=== PATIENT | female | born 1945 | race Caucasian/White ===

== ENCOUNTER 2017-02-22 16:33 | Inpatient (IN) | payer MEDICARE ==
[~2017-02-22] VITALS: Ht 160 cm; Wt 61.0 kg
[~2017-02-22 16:33] MED LIST: ASPI325T4 PO; CLON0.2T PO; ESCI10TA10 PO; HYDR-3240 PO; LISI-170 PO; LOPE2TAB28 PO; LORA0.5T PO; METO-99 PO; ONDA4TAB7 PO; OXYC-302 PO; [UNRECOGNIZED DRUG - REMARK]
[2017-02-22] MEDS ORDERED: ONDANSETRON 2MG/ML, 2ML IVPush ONE (17:00)
[2017-02-22] MEDS ORDERED: SODIUM CHLORIDE FLUSH 10ML SYR IVF ONE (17:00)
[2017-02-22] MEDS ORDERED: ONDANSETRON 2MG/ML, 2ML ONE (17:15)
[2017-02-22] MEDS ORDERED: SODIUM CHLORIDE 0.9% 1,000ML IVBOLUS ONE (17:30)
[2017-02-22 17:37] LABS: HEMOGLOBIN 15.7 g/dL (11.7-16.4)
[2017-02-22 17:50] LABS: BLOOD UREA NITROGEN 59 mg/dL (7-18)
[2017-02-22 17:57] LABS: IS PT STATUS REG ER OR PRE ER? YES
[2017-02-22] MEDS ORDERED: DEXTROSE 50%, 50ML SYRINGE ONE (18:56)
[2017-02-22] MEDS ORDERED: CALCIUM CHLORIDE 10%, 10ML SYR ONE (18:57)
[2017-02-22] MEDS ORDERED: INSULIN SINGLE DOSE, ER SQ-INSULIN ONE (18:58)
[2017-02-22] MEDS ORDERED: ALBUTEROL 0.5%, 20ML NPPB ONE (19:00)
[2017-02-22] MEDS ORDERED: CALCIUM CHLORIDE 10%, 10ML SYR IVPush ONE (19:00)
[2017-02-22] MEDS ORDERED: DEXTROSE 50%, 50ML SYRINGE IVPush ONE (19:00)
[2017-02-22] MEDS ORDERED: INSULIN REGULAR 100 UNITS/ML, 3ML VIAL IVPush ONE (19:00)
[2017-02-22 19:12] LABS: ICTOTEST POSITIVE
[2017-02-22] MEDS ORDERED: METRONIDAZOLE PMX 500MG/100ML 100 ML IV ONE (19:30)
[2017-02-22] MEDS ORDERED: CEFTRIAXONE PMX 1GM/50ML 50 ML IV ONE (19:30)
[2017-02-22] MEDS ORDERED: METRONIDAZOLE PMX 500MG/100ML 100 ML ONE (19:50)
[2017-02-22] MEDS ORDERED: CEFTRIAXONE PMX 1GM/50ML 50 ML ONE (19:51)
[2017-02-22] MEDS: SODIUM BICARBONATE 8.4% 150 MEQ in DEXTROSE 5% 1,000 ML IV SCH (19:59)
[2017-02-22] MEDS ORDERED: PROC10TA PO (20:10)
[2017-02-22] MEDS ORDERED: BISACODYL 10 MG SUPP PR PRN (21:00)
[2017-02-22] MEDS ORDERED: ONDANSETRON ODT 4 MG PO PRN (21:00)
[2017-02-22] MEDS ORDERED: POLYETHYLENE GLYCOL 17 GM PACKET PO PRN (21:00)
[2017-02-22] MEDS ORDERED: LABETALOL 5MG/ML, 20ML IV PRN (21:00)
[2017-02-22] MEDS ORDERED: ACETAMINOPHEN 325 MG TABLET PO PRN (21:00)
[2017-02-22] MEDS ORDERED: DOCUSATE 100 MG CAPSULE PO PRN (21:00)
[2017-02-22] MEDS ORDERED: TRAZODONE 50MG TABLET PO PRN (21:00)
[2017-02-22 22:53] VITALS: BP 127/70
[2017-02-22 23:27] LABS: BLOOD UREA NITROGEN 59 mg/dL (7-18)
[2017-02-23 02:00] VITALS: BP 132/82
[2017-02-23] MEDS: HEPARIN 5,000 UNITS/ML, 1ML SQ SCH ×3 (02:28→17:51)
[2017-02-23] MEDS: METRONIDAZOLE PMX 500MG/100ML 100 ML IV SCH ×3 (04:32→20:07)
[2017-02-23] MEDS: SODIUM BICARBONATE 8.4% 150 MEQ in DEXTROSE 5% 1,000 ML IV SCH ×3 (04:44→20:06)
[2017-02-23 06:40] VITALS: BP 103/64
[2017-02-23 06:42] LABS: HEMOGLOBIN 11.9 g/dL (11.7-16.4)
[2017-02-23 06:53] LABS: BLOOD UREA NITROGEN 56 mg/dL (7-18)
[2017-02-23 07:04] LABS: ASPARTATE AMINO TRANSFERASE 14 U/L (15-37)
[2017-02-23] MEDS: CEFTRIAXONE PMX 2GM/50ML 50 ML IV SCH (08:29)
[2017-02-23] MEDS: CITALOPRAM 20 MG TABLET PO SCH (08:29)
[2017-02-23 14:00] VITALS: BP 111/65
[2017-02-23 22:32] VITALS: BP 119/82
[2017-02-24 02:50] VITALS: BP 107/64
[2017-02-24] MEDS: SODIUM BICARBONATE 8.4% 150 MEQ in DEXTROSE 5% 1,000 ML IV SCH ×2 (03:24→11:40)
[2017-02-24] MEDS: HEPARIN 5,000 UNITS/ML, 1ML SQ SCH ×3 (03:24→19:01)
[2017-02-24] MEDS: METRONIDAZOLE PMX 500MG/100ML 100 ML IV SCH ×3 (03:24→19:48)
[2017-02-24 04:42] LABS: HEMOGLOBIN 10.2 g/dL (11.7-16.4)
[2017-02-24 04:51] LABS: BLOOD UREA NITROGEN 43 mg/dL (7-18)
[2017-02-24 04:55] LABS: ASPARTATE AMINO TRANSFERASE 15 U/L (15-37); TOTAL IRON BINDING CAPACITY 336 mcg/dL (250-450)
[2017-02-24 07:21] VITALS: BP 102/61
[2017-02-24] MEDS: CEFTRIAXONE PMX 2GM/50ML 50 ML IV SCH (07:56)
[2017-02-24] MEDS: CITALOPRAM 20 MG TABLET PO SCH (07:56)
[2017-02-24] MEDS: SODIUM CHLORIDE 0.9% 1,000 ML IV SCH ×2 (12:00→23:13)
[2017-02-24 13:44] VITALS: BP 100/64
[2017-02-24] MEDS ORDERED: LORazepam 2 MG/ML, 1ML IVPush PRN (16:00)
[2017-02-24] MEDS: POTASSIUM CHLORIDE 20 MEQ PACKET PO SCH (16:49)
[2017-02-24 20:45] VITALS: BP 112/60
[2017-02-25 01:08] VITALS: BP 109/73
[2017-02-25] MEDS: METRONIDAZOLE PMX 500MG/100ML 100 ML IV SCH ×2 (03:53→12:00)
[2017-02-25] MEDS: HEPARIN 5,000 UNITS/ML, 1ML SQ SCH ×2 (03:54→11:30)
[2017-02-25] MEDS: SODIUM CHLORIDE 0.9% 1,000 ML IV SCH (03:55)
[2017-02-25 04:19] LABS: HEMOGLOBIN 9.9 g/dL (11.7-16.4)
[2017-02-25 04:31] LABS: ASPARTATE AMINO TRANSFERASE 20 U/L (15-37); BLOOD UREA NITROGEN 24 mg/dL (7-18)
[2017-02-25 07:18] VITALS: BP 116/73
[2017-02-25] MEDS: CITALOPRAM 20 MG TABLET PO SCH (08:22)
[2017-02-25] MEDS: POTASSIUM CHLORIDE 20 MEQ PACKET PO SCH (08:22)
[2017-02-25] MEDS: CEFTRIAXONE PMX 2GM/50ML 50 ML IV SCH (08:22)
[2017-02-25] MEDS ORDERED: METR500T PO (10:21)
[2017-02-25] MEDS ORDERED: CEFD300C2 PO (10:21)
[2017-02-25] MEDS ORDERED: POTASSIUM CHLORIDE 20 MEQ TAB.ER.PRT PO ONE (10:30)
[2017-02-25] MEDS ORDERED: POTA20PA8 PO (10:38)
== END 2017-02-25 13:23 | disposition home or self-care (01) | DRG 872 ==
LOC: ED 18:55 → EDIP 20:37 → 5SO 22:25 → 3NW 02-23 18:15
PROVIDERS: ADMIT Internal Medicine; ATTEND Internal Medicine
PROC: 0T9B70Z Drainage of Bladder with Drainage Device, Via Natural or Artificial Opening (ICD-10-PCS; principal; 2017-02-22)
DX: A41.9 Sepsis, unspecified organism (principal); N17.9 Acute kidney failure, unspecified; E87.1 Hypo-osmolality and hyponatremia; E87.2 Acidosis; E46 Unspecified protein-calorie malnutrition; C78.7 Secondary malignant neoplasm of liver and intrahepatic bile duct; C20 Malignant neoplasm of rectum; E87.5 Hyperkalemia; E83.41 Hypermagnesemia; N18.3 Chronic kidney disease, stage 3 (moderate); F32.9 Major depressive disorder, single episode, unspecified; F41.9 Anxiety disorder, unspecified; A08.4 Viral intestinal infection, unspecified; E86.0 Dehydration; I12.9 Hypertensive chronic kidney disease with stage 1 through stage 4 chronic kidney disease, or unspecified chronic kidney disease; E87.6 Hypokalemia; Z68.23 Body mass index [BMI] 23.0-23.9, adult; Z85.048 Personal history of other malignant neoplasm of rectum, rectosigmoid junction, and anus; Z90.49 Acquired absence of other specified parts of digestive tract; Z80.0 Family history of malignant neoplasm of digestive organs; Z92.21 Personal history of antineoplastic chemotherapy
CPT/HCPCS: 36415; 71010; 76700; 80048; 80053; 81001; 82040; 82728; 83540; 83550; 83605; 83735; 84100; 84145; 84439; 84443; 84484; 84550; 85025; 87040; 87046; 87252; 87324; 87899; 93005; 96361; 96365; 96366; 96368; 96375; J0696; J1644; J2405; J7070; J2060; J7030

== ENCOUNTER → 2017-04-20 | Outpatient (CLI) | payer MEDICARE ==
[~2017-04-20] MED LIST changes: +CEFD300C37 PO; +METR500T PO; +OMNIPAQUE 350 MG/ML, 75ML BOTTLE ONE; +POTA20PA8 PO; +PROC10TA PO
== END | disposition home or self-care (01) ==
LOC: CFH 09:58
PROVIDERS: ATTEND Internal Medicine Hematology & Oncology
DX: C18.7 Malignant neoplasm of sigmoid colon (principal); M51.34 Other intervertebral disc degeneration, thoracic region; J84.10 Pulmonary fibrosis, unspecified; N28.1 Cyst of kidney, acquired; K43.5 Parastomal hernia without obstruction or gangrene
CPT/HCPCS: 71260; 74177; J1642; Q9967

== ENCOUNTER → 2017-05-10 | Outpatient (CLI) | payer MEDICARE ==
[~2017-05-10] MED LIST changes: -OMNIPAQUE 350 MG/ML, 75ML BOTTLE ONE
== END | disposition home or self-care (01) ==
LOC: RAD 07:42
PROVIDERS: ATTEND Colon & Rectal Surgery
DX: C18.9 Malignant neoplasm of colon, unspecified (principal); C79.51 Secondary malignant neoplasm of bone; K63.89 Other specified diseases of intestine; M51.36 Other intervertebral disc degeneration, lumbar region
CPT/HCPCS: 74270

== ENCOUNTER 2017-05-14 16:54 | Inpatient (IN) | payer MEDICARE ==
[~2017-05-14] VITALS: Ht 157.5 cm; Wt 74.2 kg
[2017-05-14] MEDS ORDERED: SODIUM CHLORIDE 0.9% 1,000 ML IV ONE (17:44)
[2017-05-14] MEDS ORDERED: SODIUM CHLORIDE FLUSH 10ML SYR IVF ONE (18:00)
[2017-05-14] MEDS ORDERED: ONDANSETRON 2MG/ML, 2ML IVPush ONE (18:00)
[2017-05-14 19:06] LABS: PATH.CAST-FLAG NOT PRESENT; SPERM-FLAG NOT PRESENT; SRC-FLAG NOT PRESENT; XTAL-FLAG NOT PRESENT; YLC-FLAG NOT PRESENT
[2017-05-14 19:15] LABS: BLOOD UREA NITROGEN 35 mg/dL (7-18)
[2017-05-14 19:18] LABS: ASPARTATE AMINO TRANSFERASE 26 U/L (15-37)
[2017-05-14] MEDS ORDERED: GABA300C10 PO (19:29)
[2017-05-14] MEDS: HEPARIN 5,000 UNITS/ML, 1ML SQ SCH (21:00)
[2017-05-14] MEDS ORDERED: ONDANSETRON 2MG/ML, 2ML IVPush PRN (21:00)
[2017-05-14 21:52] VITALS: BP 121/73
[2017-05-14] MEDS: SODIUM CHLORIDE 0.9% 1,000 ML IV SCH (22:09)
[2017-05-15 01:31] VITALS: BP 120/76
[2017-05-15] MEDS: morphine SULFATE 10 MG/ML, 1ML IVPush PRN ×2 (03:50→21:23)
[2017-05-15] MEDS: HEPARIN 5,000 UNITS/ML, 1ML SQ SCH ×3 (03:51→21:23)
[2017-05-15] MEDS: ONDANSETRON 2MG/ML, 2ML IVPush PRN (04:13)
[2017-05-15 04:53] LABS: ASPARTATE AMINO TRANSFERASE 16 U/L (15-37); BLOOD UREA NITROGEN 32 mg/dL (7-18)
[2017-05-15 07:33] VITALS: BP 112/63
[2017-05-15] MEDS: SODIUM CHLORIDE 0.9% 1,000 ML IV SCH ×2 (09:06→17:42)
[2017-05-15 17:36] VITALS: BP 109/69
[2017-05-15 19:44] VITALS: BP 117/69
[2017-05-15] MEDS ORDERED: SODIUM CHLORIDE 0.9% 1,000 ML IV SCH (20:53)
[2017-05-16] MEDS ORDERED: LORazepam 2 MG/ML, 1ML ONE (03:12)
[2017-05-16 03:15] VITALS: BP 113/74
[2017-05-16] MEDS ORDERED: LORazepam 2 MG/ML, 1ML IVPush ONE (03:15)
[2017-05-16 04:20] LABS: BLOOD UREA NITROGEN 28 mg/dL (7-18)
[2017-05-16] MEDS: D5%-0.9% NACL 1,000 ML IV SCH ×3 (04:30→18:37)
[2017-05-16] MEDS: HEPARIN 5,000 UNITS/ML, 1ML SQ SCH ×3 (05:00→20:51)
[2017-05-16 06:51] VITALS: BP 108/65
[2017-05-16] MEDS: morphine SULFATE 10 MG/ML, 1ML IVPush PRN ×3 (12:09→20:51)
[2017-05-16 14:50] VITALS: BP 109/63
[2017-05-16 19:18] VITALS: BP 127/64
[2017-05-16] MEDS: GABAPENTIN 300 MG CAPSULE PO SCH (20:51)
[2017-05-17] MEDS: D5%-0.9% NACL 1,000 ML IV SCH ×4 (00:30→23:42)
[2017-05-17] MEDS: morphine SULFATE 10 MG/ML, 1ML IVPush PRN ×6 (01:30→23:43)
[2017-05-17] MEDS: HEPARIN 5,000 UNITS/ML, 1ML SQ SCH ×3 (05:00→23:11)
[2017-05-17 06:15] LABS: BLOOD UREA NITROGEN 17 mg/dL (7-18)
[2017-05-17] MEDS: GABAPENTIN 300 MG CAPSULE PO SCH ×2 (08:31→23:13)
[2017-05-17] MEDS: LEXAPRO 10 MG PO SCH (08:36)
[2017-05-17 08:48] VITALS: BP 113/69
[2017-05-17] MEDS ORDERED: POTASSIUM PHOSPHATE 44 MEQ in SODIUM CHLORIDE 0.9% 500 ML IV ONE (09:00)
[2017-05-17] MEDS ORDERED: CITALOPRAM 10 MG TABLET PO SCH (09:00)
[2017-05-17] MEDS ORDERED: CEFOTETAN 2 GM ONE (10:39)
[2017-05-17] MEDS ORDERED: GLYCOPYRROLATE 0.2MG/1ML ONE (10:39)
[2017-05-17] MEDS ORDERED: PROPOFOL 10 MG/ML, 20ML ONE (10:39)
[2017-05-17] MEDS ORDERED: ONDANSETRON 2MG/ML, 2ML ONE (10:39)
[2017-05-17] MEDS ORDERED: NEOSTIGMINE 1 MG/ML, 10ML ONE (10:39)
[2017-05-17] MEDS ORDERED: DEXAMETHASONE 4 MG/ML, 1ML ONE (10:39)
[2017-05-17] MEDS ORDERED: ROCURONIUM 10 MG/ML ONE (10:39)
[2017-05-17 14:30] VITALS: BP 123/71
[2017-05-17] MEDS ORDERED: FENTANYL PF 250 MCG/5ML ONE (16:39)
[2017-05-17] MEDS ORDERED: PROMETHAZINE 25 MG/ML, 1ML IV PRN (18:00)
[2017-05-17] MEDS ORDERED: ALBUTEROL SULFATE 2.5 MG/3 ML NPPB PRN (18:00)
[2017-05-17] MEDS ORDERED: METOPROLOL 1 MG/ML, 5ML IV PRN (18:00)
[2017-05-17] MEDS ORDERED: ACETAMINOPHEN 325 MG TABLET PO PRN (18:00)
[2017-05-17] MEDS ORDERED: OXYcodone 5 MG/5 ML ORAL.SOL UDC PO PRN (18:00)
[2017-05-17] MEDS ORDERED: hydrALAzine 20 MG/ML, 1ML IV PRN (18:00)
[2017-05-17] MEDS ORDERED: HYDROmorphone 1 MG/ML, 1ML IV PRN (18:00)
[2017-05-17] MEDS ORDERED: PROMETHAZINE 25 MG/ML, 1ML ONE (18:30)
[2017-05-17] MEDS ORDERED: FENTANYL PF 100 MCG/2ML ONE (18:30)
[2017-05-17] MEDS: FENTANYL PF 100 MCG/2ML IV PRN ×2 (18:35→19:00)
[2017-05-17 19:39] VITALS: BP 117/66
[2017-05-17] MEDS: ONDANSETRON 2MG/ML, 2ML IVPush PRN (22:23)
[2017-05-17] MEDS ORDERED: DIPHENHYDRAMINE 50 MG/ML, 1ML IV PRN (22:30)
[2017-05-17] MEDS ORDERED: LORazepam 1MG TABLET PO PRN (22:30)
[2017-05-17] MEDS ORDERED: LORazepam 2 MG/ML, 1ML IV PRN (22:30)
[2017-05-17] MEDS ORDERED: morphine SULFATE 10 MG/ML, 1ML IV PRN (22:30)
[2017-05-17] MEDS ORDERED: ONDANSETRON 2MG/ML, 2ML IV PRN (22:30)
[2017-05-17] MEDS ORDERED: DIPHENHYDRAMINE 25 MG CAPSULE PO PRN (22:30)
[2017-05-17] MEDS: KETOROLAC 30 MG/1 ML IV SCH (23:43)
[2017-05-17] MEDS: LACTATED RINGERS 1,000 ML IV SCH (23:43)
[2017-05-18 00:17] VITALS: BP 135/73
[2017-05-18] MEDS: morphine SULFATE 10 MG/ML, 1ML IVPush PRN ×4 (03:01→20:51)
[2017-05-18 03:50] VITALS: BP 116/70
[2017-05-18] MEDS: HEPARIN 5,000 UNITS/ML, 1ML SQ SCH (05:00)
[2017-05-18 06:19] LABS: BLOOD UREA NITROGEN 15 mg/dL (7-18)
[2017-05-18] MEDS: D5%-0.9% NACL 1,000 ML IV SCH (06:37)
[2017-05-18] MEDS: KETOROLAC 30 MG/1 ML IV SCH ×3 (06:37→18:20)
[2017-05-18] MEDS: CEFOTETAN PMX 2GM/50ML 50 ML IVPB SCH ×2 (06:37→18:19)
[2017-05-18] MEDS: LACTATED RINGERS 1,000 ML IV SCH ×2 (06:37→14:30)
[2017-05-18 08:13] VITALS: BP 105/58
[2017-05-18] MEDS: ENOXAPARIN 40 MG/0.4 ML SQ SCH (08:48)
[2017-05-18] MEDS: GABAPENTIN 300 MG CAPSULE PO SCH ×2 (08:48→20:51)
[2017-05-18] MEDS: LEXAPRO 10 MG PO SCH (08:50)
[2017-05-18] MEDS ORDERED: NS + 20MEQ KCL 1,000 ML IV SCH (09:30)
[2017-05-18 11:29] VITALS: BP 102/63
[2017-05-18 15:33] VITALS: BP 116/72
[2017-05-18] MEDS: D5%-0.45% NACL 1,000 ML IV SCH (16:44)
[2017-05-18 20:48] VITALS: BP 104/64
[2017-05-19] MEDS: KETOROLAC 30 MG/1 ML IV SCH ×2 (00:32→06:48)
[2017-05-19] MEDS: D5%-0.45% NACL 1,000 ML IV SCH ×4 (00:32→23:40)
[2017-05-19] MEDS: morphine SULFATE 10 MG/ML, 1ML IVPush PRN ×3 (00:33→19:12)
[2017-05-19 03:13] VITALS: BP 118/68
[2017-05-19 06:44] LABS: BLOOD UREA NITROGEN 19 mg/dL (7-18)
[2017-05-19] MEDS: LEXAPRO 10 MG PO SCH (08:01)
[2017-05-19] MEDS: ENOXAPARIN 40 MG/0.4 ML SQ SCH (08:01)
[2017-05-19] MEDS: GABAPENTIN 300 MG CAPSULE PO SCH ×2 (08:01→20:23)
[2017-05-19 08:06] VITALS: BP 117/72
[2017-05-19 13:24] VITALS: BP 124/78
[2017-05-19 15:31] LABS: BLOOD UREA NITROGEN 17 mg/dL (7-18)
[2017-05-19] MEDS ORDERED: POTASSIUM CHLORIDE 40 MEQ in SODIUM CHLORIDE 0.9% 500 ML IV ONE (16:00)
[2017-05-19 19:51] VITALS: BP 133/74
[2017-05-19] MEDS: ONDANSETRON 2MG/ML, 2ML IVPush PRN (20:08)
[2017-05-19] MEDS: OXYcodone/APAP 5/325MG TABLET PO PRN (20:23)
[2017-05-20] MEDS: OXYcodone/APAP 5/325MG TABLET PO PRN ×5 (00:33→18:21)
[2017-05-20 01:03] VITALS: BP 115/68
[2017-05-20] MEDS: D5%-0.45% NACL 1,000 ML IV SCH ×2 (04:42→10:13)
[2017-05-20] MEDS: ONDANSETRON 2MG/ML, 2ML IVPush PRN ×2 (04:42→17:14)
[2017-05-20 05:08] LABS: BLOOD UREA NITROGEN 14 mg/dL (7-18)
[2017-05-20] MEDS ORDERED: ENOXAPARIN 30 MG/0.3 ML SQ SCH (08:00)
[2017-05-20 08:15] VITALS: BP 136/79
[2017-05-20] MEDS ORDERED: POTASSIUM PHOSPHATE 44 MEQ in SODIUM CHLORIDE 0.9% 500 ML IV ONE (09:00)
[2017-05-20] MEDS ORDERED: MAGNESIUM SULFATE PMX 2GM/50ML 50 ML IV ONE (09:00)
[2017-05-20] MEDS: GABAPENTIN 300 MG CAPSULE PO SCH ×2 (09:48→20:31)
[2017-05-20] MEDS: LEXAPRO 10 MG PO SCH (09:49)
[2017-05-20 12:54] VITALS: BP 110/69
[2017-05-20 20:27] VITALS: BP 119/74
[2017-05-21] MEDS: ONDANSETRON 2MG/ML, 2ML IVPush PRN ×2 (00:45→05:28)
[2017-05-21] MEDS: OXYcodone/APAP 5/325MG TABLET PO PRN ×4 (02:15→23:17)
[2017-05-21 03:56] VITALS: BP 127/75
[2017-05-21] MEDS: D5%-0.45% NACL 1,000 ML IV SCH (05:23)
[2017-05-21 05:26] LABS: BLOOD UREA NITROGEN 13 mg/dL (7-18)
[2017-05-21] MEDS: LEXAPRO 10 MG PO SCH (09:00)
[2017-05-21] MEDS: ENOXAPARIN 40 MG/0.4 ML SQ SCH (09:05)
[2017-05-21] MEDS: GABAPENTIN 300 MG CAPSULE PO SCH ×2 (09:05→20:35)
[2017-05-21 09:07] VITALS: BP 137/77
[2017-05-21] MEDS ORDERED: D5%-0.9% NACL+KCL 20MEQ 1,000 ML IV SCH (10:00)
[2017-05-21 14:21] VITALS: BP 137/83
[2017-05-21] MEDS: FUROSEMIDE 20 MG/2 ML IV SCH ×2 (14:27→17:00)
[2017-05-21 19:58] VITALS: BP 126/74
[2017-05-22] MEDS: OXYcodone/APAP 5/325MG TABLET PO PRN ×3 (03:23→20:50)
[2017-05-22 03:33] VITALS: BP 118/72
[2017-05-22 05:57] LABS: BLOOD UREA NITROGEN 11 mg/dL (7-18)
[2017-05-22] MEDS ORDERED: FUROSEMIDE 20 MG/2 ML IV ONE (06:00)
[2017-05-22 06:46] VITALS: BP 113/67
[2017-05-22] MEDS: GABAPENTIN 300 MG CAPSULE PO SCH ×2 (09:25→20:48)
[2017-05-22] MEDS: ENOXAPARIN 40 MG/0.4 ML SQ SCH (09:26)
[2017-05-22] MEDS ORDERED: D5%-0.9% NACL+KCL 20MEQ 1,000 ML IV SCH (10:00)
[2017-05-22] MEDS: CITALOPRAM 20 MG TABLET PO SCH (11:22)
[2017-05-22 13:43] VITALS: BP 118/64
[2017-05-22 20:00] VITALS: BP 129/62
[2017-05-23] MEDS: OXYcodone/APAP 5/325MG TABLET PO PRN ×2 (01:02→05:18)
[2017-05-23 03:22] VITALS: BP 123/69
[2017-05-23 05:51] LABS: BLOOD UREA NITROGEN 14 mg/dL (7-18)
[2017-05-23 07:06] VITALS: BP 138/76
[2017-05-23] MEDS: ENOXAPARIN 40 MG/0.4 ML SQ SCH (09:36)
[2017-05-23] MEDS: CITALOPRAM 20 MG TABLET PO SCH (09:36)
[2017-05-23] MEDS: GABAPENTIN 300 MG CAPSULE PO SCH (09:36)
[2017-05-23] MEDS ORDERED: OXYC1TAB7 PO (10:42)
== END 2017-05-23 11:58 | disposition home or self-care (01) | DRG 330 ==
LOC: ED 19:37 → EDIP 20:23 → 3NW 21:32 → 4NOR 05-17 19:35 → DCLOUNGE 05-23 11:30
PROVIDERS: ADMIT Internal Medicine; ATTEND Family Medicine
PROC: 0WQF0ZZ Repair Abdominal Wall, Open Approach (ICD-10-PCS; 2017-05-17)
PROC: 0JPT0XZ Removal of Tunneled Vascular Access Device from Trunk Subcutaneous Tissue and Fascia, Open Approach (ICD-10-PCS; 2017-05-17)
PROC: 0DBB0ZZ Excision of Ileum, Open Approach (ICD-10-PCS; principal; 2017-05-17 16:00)
DX: K43.3 Parastomal hernia with obstruction, without gangrene (principal); E87.1 Hypo-osmolality and hyponatremia; E87.2 Acidosis; N17.9 Acute kidney failure, unspecified; D64.9 Anemia, unspecified; E83.39 Other disorders of phosphorus metabolism; E83.42 Hypomagnesemia; E86.1 Hypovolemia; E87.6 Hypokalemia; F32.9 Major depressive disorder, single episode, unspecified; F41.9 Anxiety disorder, unspecified; K42.9 Umbilical hernia without obstruction or gangrene; N18.3 Chronic kidney disease, stage 3 (moderate); Z43.2 Encounter for attention to ileostomy; Z80.0 Family history of malignant neoplasm of digestive organs; Z85.048 Personal history of other malignant neoplasm of rectum, rectosigmoid junction, and anus
CPT/HCPCS: 36415; 74176; 80048; 80053; 81001; 82040; 83690; 83735; 84100; 85025; 85610; 85730; 88304; 96360; 96361; J1100; J1644; J1650; J1885; J2405; J2550; J2704; J2710; J3010; J3480; J3490; J7042; J1940; J2060; J2270; J3475; J7030; J7040; S0074

== ENCOUNTER → 2017-11-02 | Outpatient (CLI) | payer MEDICARE ==
[~2017-11-02] MED LIST changes: +ASPI325T17 PO; -ASPI325T4 PO; +GABA300C10 PO; +OXYC1TAB7 PO; +POTA20PA25 PO; -POTA20PA8 PO
== END | disposition home or self-care (01) ==
LOC: CFH 14:03
PROVIDERS: ATTEND Internal Medicine
DX: Z12.31 Encounter for screening mammogram for malignant neoplasm of breast (principal); M85.80 Other specified disorders of bone density and structure, unspecified site
CPT/HCPCS: 77063; 77080; G0202

== ENCOUNTER 2018-05-14 19:03 | Emergency (ER) | payer MEDICARE ==
[~2018-05-14] VITALS: Ht 157.5 cm; Wt 68.0 kg
[2018-05-14] MEDS ORDERED: LIDOCAINE-MPF 2% ,5ML ONE ×2 (19:22→19:58)
[2018-05-14] MEDS ORDERED: LIDOCAINE 2%, 10ML INFIL ONE (20:00)
[2018-05-14] MEDS ORDERED: BACITRACIN ZINC OINT 500U/GM, 0.9 GM ONE (20:43)
[2018-05-14 21:22] VITALS: BP 184/99
== END 2018-05-14 21:34 | disposition home or self-care (01) ==
LOC: ED 21:05
DX: S61.212A Laceration without foreign body of right middle finger without damage to nail, initial encounter (principal); W45.8XXA Other foreign body or object entering through skin, initial encounter; Y93.89 Activity, other specified; Y99.8 Other external cause status; Y92.89 Other specified places as the place of occurrence of the external cause
CPT/HCPCS: 12041; 99284

== ENCOUNTER → 2018-07-13 | Outpatient (CLI) | payer MEDICARE ==
[~2018-07-13] MED LIST changes: +OMNIPAQUE 350 MG/ML, 100ML BOTTLE ONE; -PROC10TA PO; +PROC10TA2 PO
== END | disposition home or self-care (01) ==
LOC: CFH 11:16
PROVIDERS: ATTEND Colon & Rectal Surgery
DX: K43.2 Incisional hernia without obstruction or gangrene (principal); N28.1 Cyst of kidney, acquired; C18.9 Malignant neoplasm of colon, unspecified
CPT/HCPCS: 71260; 74177; 82565; Q9967

== ENCOUNTER 2018-08-28 06:43 | Day surgery (SDC) | payer MEDICARE ==
[~2018-08-28] VITALS: Ht 158.8 cm; Wt 66.6 kg
[~2018-08-28 06:43] MED LIST changes: -OMNIPAQUE 350 MG/ML, 100ML BOTTLE ONE
[2018-08-28] MEDS ORDERED: SODIUM CHLORIDE 0.9% 1,000 ML IV SCH (07:32)
[2018-08-28 08:05] VITALS: BP 180/95
[2018-08-28] MEDS ORDERED: AMLO5TAB7 PO (08:13)
[2018-08-28] MEDS ORDERED: ESCI10TA10 PO (08:13)
[2018-08-28] MEDS ORDERED: DIPH1TAB6 PO (08:13)
[2018-08-28] MEDS ORDERED: ESCI10TA PO (08:13)
[2018-08-28] MEDS ORDERED: ALEN70TA5 PO (08:13)
[2018-08-28 08:17] LABS: INTERNATIONAL NORMALIZED RATIO 0.95 (0.93-1.1); PROTHROMBIN TIME 9.8 Seconds (9.6-11.5)
[2018-08-28] MEDS ORDERED: LIDOCAINE-MPF 2%, 2ML ONE (08:50)
[2018-08-28] MEDS ORDERED: FENTANYL PF 100 MCG/2ML ONE (09:15)
[2018-08-28] MEDS ORDERED: MIDAZOLAM 1 MG/ML, 5ML ONE (09:15)
[2018-08-28] MEDS ORDERED: NALOXONE 1 MG/ML, 2ML ONE (09:16)
[2018-08-28] MEDS ORDERED: FLUMAZENIL 0.1 MG/1 ML, 5ML ONE (09:16)
== END 2018-08-28 12:05 | disposition home or self-care (01) ==
LOC: OUT 06:43
PROVIDERS: ATTEND Internal Medicine Hematology & Oncology
DX: C18.7 Malignant neoplasm of sigmoid colon (principal); F41.9 Anxiety disorder, unspecified; F32.9 Major depressive disorder, single episode, unspecified; I10 Essential (primary) hypertension; Z72.89 Other problems related to lifestyle
CPT/HCPCS: 36415; 47000; 77012; 85610; 88307; 99156; 99157; J2250; J3010; J3490; J7030; J2310

== ENCOUNTER → 2018-08-30 | Outpatient (CLI) | payer MEDICARE ==
[~2018-08-30] MED LIST changes: +ALEN70TA5 PO; +AMLO5TAB7 PO; +DIPH1TAB6 PO; +ESCI10TA PO
== END | disposition home or self-care (01) ==
LOC: PETCFH 07:42
PROVIDERS: ATTEND Internal Medicine Hematology & Oncology
DX: K76.9 Liver disease, unspecified (principal); R59.0 Localized enlarged lymph nodes; C18.7 Malignant neoplasm of sigmoid colon
CPT/HCPCS: 78815; A9552

== ENCOUNTER → 2018-11-08 | Outpatient (CLI) | payer MEDICARE ==
[~2018-11-08] MED LIST changes: +AMLO-150 PO; -AMLO5TAB7 PO
== END | disposition home or self-care (01) ==
LOC: CFH 10:37
PROVIDERS: ATTEND Internal Medicine
DX: Z12.31 Encounter for screening mammogram for malignant neoplasm of breast (principal); Z80.3 Family history of malignant neoplasm of breast; Z85.038 Personal history of other malignant neoplasm of large intestine
CPT/HCPCS: 77067

== ENCOUNTER → 2018-11-30 | Outpatient (CLI) | payer MEDICARE ==
[~2018-11-30] MED LIST changes: +OMNIPAQUE 350 MG/ML, 100ML BOTTLE ONE
== END | disposition home or self-care (01) ==
LOC: CFH 09:53
PROVIDERS: ATTEND Internal Medicine Hematology & Oncology
DX: C18.7 Malignant neoplasm of sigmoid colon (principal); C78.7 Secondary malignant neoplasm of liver and intrahepatic bile duct; M48.54XD Collapsed vertebra, not elsewhere classified, thoracic region, subsequent encounter for fracture with routine healing; M85.88 Other specified disorders of bone density and structure, other site; R91.1 Solitary pulmonary nodule; I70.0 Atherosclerosis of aorta; I51.7 Cardiomegaly; R59.1 Generalized enlarged lymph nodes; K76.89 Other specified diseases of liver; M41.86 Other forms of scoliosis, lumbar region
CPT/HCPCS: 71260; 74177; Q9967

== ENCOUNTER 2019-02-09 17:49 | Emergency (ER) | payer MEDICARE ==
[~2019-02-09] VITALS: Ht 157.5 cm; Wt 68.0 kg
[~2019-02-09 17:49] MED LIST changes: -OMNIPAQUE 350 MG/ML, 100ML BOTTLE ONE; -[UNRECOGNIZED DRUG - OTHER] IMPLANT
[2019-02-09 18:27] LABS: BASOPHILS # (AUTO) 0.02 x10^3/uL (0-0.1); BASOPHILS % (AUTO) 0 % (0-1); EOSINOPHILS # (AUTO) 0.03 x10^3/uL (0-0.4); EOSINOPHILS % (AUTO) 1 % (1-7); LYMPHOCYTES # (AUTO) 1.78 x10^3/uL (1-3.4); LYMPHOCYTES % (AUTO) 35 % (22-44); MD NO; MEAN CORPUSCULAR HEMOGLOBIN 33.2 pg (27.0-34.8); MEAN CORPUSCULAR HGB CONC 33.6 g/dL (32.4-35.8); MEAN CORPUSCULAR VOLUME 98.8 fL (80-100); MEAN PLATELET VOLUME 6.3 fL (7.4-10.4); MONOCYTES # (AUTO) 0.45 x10^3/uL (0.2-0.8); MONOCYTES % (AUTO) 9 % (2-9); NEUTROPHILS # (AUTO) 2.84 x10^3/uL (1.8-6.8); NEUTROPHILS % (AUTO) 56 % (42-75); PLATELET COUNT 483 x10^3/uL (130-400); RED BLOOD COUNT 3.48 x10^6/uL (3.82-5.3); RED CELL DISTRIBUTION WIDTH 17.4 % (9.6-15.2)
[2019-02-09 18:34] LABS: INTERNATIONAL NORMALIZED RATIO 0.97 (0.93-1.1); PROTHROMBIN TIME 10.2 Seconds (9.6-11.5)
[2019-02-09 18:39] LABS: ALBUMIN 3.7 g/dL (3.4-5.0); ANION GAP 8 mmol/L (5-15); CALCIUM 8.6 mg/dL (8.5-10.1); CHLORIDE 107 mmol/L (98-107); CREATININE 1.04 mg/dL (0.55-1.02)
--- NOTE | 2019-02-09 19:00 | NUR ---
ASSUMED CARE OF PT AT THIS TIME. PT CURRENTLY RESTING ON GURNEY. NAD NOTED. SKIN PWD. RESP EVEN AND EQAUL. THIS IS A 73 YO FEMALE WHO PRESENTS TO THE ER AFTER HAVING A CT SCAN AND SMALL PE'S WERE NOTED BY RADIOLOGIST. PT'S LUNGS CLEAR T/O. RESP EVEN AND EQAUL. PT ABLE TO SPEAK IN FULL 10-12 WORD SENTENCES W/O DIFFICULTY. PT REPORTS MID BACK PAIN SECONDARY TO COMPRESSION FRACTURES FROM A FALL 1 WEEK AGO. PT DENIES ANY OTHER PAIN/MEDICAL COMPLAINTS AT THIS TIME. PT ON CONT BP, CARDIAC AND O2 MONITORS. CALL LIGHT WITHIN REACH. WILL CONT TO MONITOR PT.
[2019-02-09 19:07] LABS: TROPONIN I < 0.015 ng/mL (0.000-0.045)
[2019-02-09 19:10] VITALS: BP 138/76
[2019-02-09] MEDS ORDERED: [UNRECOGNIZED DRUG - OTHER] IMPLANT (19:15)
[2019-02-09] MEDS ORDERED: ESCI10TA10 PO (19:18)
== END 2019-02-09 20:40 ==
LOC: ED 19:42
DX: S22.050A Wedge compression fracture of T5-T6 vertebra, initial encounter for closed fracture (principal); S22.060A Wedge compression fracture of T7-T8 vertebra, initial encounter for closed fracture; I26.99 Other pulmonary embolism without acute cor pulmonale; C18.7 Malignant neoplasm of sigmoid colon; C79.9 Secondary malignant neoplasm of unspecified site; W18.30XA Fall on same level, unspecified, initial encounter; Y93.89 Activity, other specified; Y92.89 Other specified places as the place of occurrence of the external cause; Y99.8 Other external cause status
CPT/HCPCS: 36415; 80048; 82040; 84484; 85025; 85610; 85730; 93005; 99284

== ENCOUNTER → 2019-02-09 | Outpatient (CLI) | payer MEDICARE ==
[~2019-02-09] MED LIST changes: -ALEN70TA5 PO; +ALEN70TA6 PO; +[UNRECOGNIZED DRUG - OTHER] IMPLANT
== END | disposition home or self-care (01) ==
LOC: CFH 12:27
PROVIDERS: ATTEND Internal Medicine Hematology & Oncology
DX: C18.7 Malignant neoplasm of sigmoid colon (principal); I26.99 Other pulmonary embolism without acute cor pulmonale; M48.54XA Collapsed vertebra, not elsewhere classified, thoracic region, initial encounter for fracture; Z85.118 Personal history of other malignant neoplasm of bronchus and lung
CPT/HCPCS: 71260; 74177; Q9967

== ENCOUNTER → 2019-04-06 | Outpatient (CLI) | payer MEDICARE ==
[~2019-04-06] MED LIST changes: +OMNIPAQUE 350 MG/ML, 100ML BOTTLE ONE; +[UNRECOGNIZED DRUG - OTHER] IMPLANT
== END | disposition home or self-care (01) ==
LOC: RAD 10:54
PROVIDERS: ATTEND Internal Medicine Hematology & Oncology
DX: C18.7 Malignant neoplasm of sigmoid colon (principal); I10 Essential (primary) hypertension; K76.89 Other specified diseases of liver; I70.0 Atherosclerosis of aorta; R59.1 Generalized enlarged lymph nodes
CPT/HCPCS: 71260; 74177; J1642; Q9967

== ENCOUNTER 2019-04-17 08:17 | Day surgery (SDC) | payer MEDICARE ==
[~2019-04-17] VITALS: Ht 154.9 cm; Wt 57.4 kg
[~2019-04-17 08:17] MED LIST changes: -OMNIPAQUE 350 MG/ML, 100ML BOTTLE ONE
[2019-04-17] MEDS ORDERED: LACTATED RINGERS 1,000 ML IV SCH (09:09)
[2019-04-17] MEDS ORDERED: RIVA10TA2 PO (09:11)
[2019-04-17] MEDS ORDERED: ONDA8TAB16 SL (09:11)
[2019-04-17 09:49] VITALS: BP 130/82
[2019-04-17] MEDS ORDERED: PROPOFOL 50 ML ONE (10:09)
[2019-04-17] MEDS ORDERED: FENTANYL PF 100 MCG/2ML IV PRN (10:30)
[2019-04-17] MEDS ORDERED: ACETAMINOPHEN 325 MG TABLET PO PRN (10:30)
[2019-04-17] MEDS ORDERED: ONDANSETRON 2MG/ML, 2ML IV PRN (10:30)
== END 2019-04-17 13:00 | disposition home or self-care (01) ==
LOC: OUT 08:17
PROVIDERS: ATTEND Internal Medicine
DX: K63.89 Other specified diseases of intestine (principal); K52.9 Noninfective gastroenteritis and colitis, unspecified; D64.9 Anemia, unspecified; Z98.0 Intestinal bypass and anastomosis status; Z85.118 Personal history of other malignant neoplasm of bronchus and lung; Z85.038 Personal history of other malignant neoplasm of large intestine; Z85.05 Personal history of malignant neoplasm of liver; Z98.890 Other specified postprocedural states
CPT/HCPCS: 45380; 88305; J2704; J7120

== ENCOUNTER 2019-06-14 09:31 | Outpatient (CLI) | payer MEDICARE ==
[~2019-06-14 09:31] MED LIST changes: +ONDA8TAB16 SL; +RIVA10TA2 PO
[2019-06-14] MEDS ORDERED: OMNIPAQUE 350 MG/ML, 100ML BOTTLE ONE (15:27)
== END 2019-06-14 23:59 | disposition home or self-care (01) ==
LOC: CFH 09:31
PROVIDERS: ATTEND Internal Medicine Hematology & Oncology
DX: C18.7 Malignant neoplasm of sigmoid colon (principal); N28.1 Cyst of kidney, acquired; K76.89 Other specified diseases of liver; M47.814 Spondylosis without myelopathy or radiculopathy, thoracic region; M48.54XA Collapsed vertebra, not elsewhere classified, thoracic region, initial encounter for fracture
CPT/HCPCS: 71260; 74177; Q9967

== ENCOUNTER → 2019-10-01 | Outpatient (CLI) | payer MEDICARE ==
[~2019-10-01] MED LIST changes: +CELE100C PO; +OXYC5CAP2 PO
== END | disposition home or self-care (01) ==
LOC: WOUND 13:00
PROVIDERS: ATTEND Internal Medicine
DX: T81.31XA Disruption of external operation (surgical) wound, not elsewhere classified, initial encounter (principal); L76.34 Postprocedural seroma of skin and subcutaneous tissue following other procedure; C18.7 Malignant neoplasm of sigmoid colon; C78.7 Secondary malignant neoplasm of liver and intrahepatic bile duct; I10 Essential (primary) hypertension; B19.10 Unspecified viral hepatitis B without hepatic coma; Y83.8 Other surgical procedures as the cause of abnormal reaction of the patient, or of later complication, without mention of misadventure at the time of the procedure; Y92.89 Other specified places as the place of occurrence of the external cause
CPT/HCPCS: 97597; G0463

== ENCOUNTER 2019-10-05 09:44 | Day surgery (SDC) | payer MEDICARE ==
[~2019-10-05] VITALS: Ht 157.5 cm; Wt 57.1 kg
[2019-10-05 10:32] VITALS: BP 167/91
[2019-10-05] MEDS ORDERED: LACTATED RINGERS 1,000 ML IV SCH (10:34)
[2019-10-05] MEDS ORDERED: FENTANYL PF 100 MCG/2ML ONE ×2 (11:19→13:38)
[2019-10-05] MEDS ORDERED: MIDAZOLAM 1 MG/ML, 2ML ONE (11:19)
[2019-10-05 11:28] LABS: INTERNATIONAL NORMALIZED RATIO 0.97 (0.93-1.1); PROTHROMBIN TIME 10.2 Seconds (9.6-11.5)
[2019-10-05] MEDS ORDERED: ONDANSETRON 2MG/ML, 2ML ONE (11:54)
[2019-10-05] MEDS ORDERED: ROCURONIUM 10MG/ML,5ML ONE (11:54)
[2019-10-05] MEDS ORDERED: SUCCINYLCHOLINE 20 MG/ML, 10ML ONE (11:54)
[2019-10-05] MEDS ORDERED: CEFAZOLIN 1,000 MG ONE (11:54)
[2019-10-05] MEDS ORDERED: PROPOFOL 10 MG/ML, 20ML ONE (11:54)
[2019-10-05] MEDS ORDERED: DEXAMETHASONE 4 MG/ML, 1ML ONE (11:54)
[2019-10-05] MEDS ORDERED: BUPIVACAINE/PF 0.5% ONE (12:04)
[2019-10-05] MEDS ORDERED: EPINEPHRINE 1 MG/ML, 1ML ONE (12:04)
[2019-10-05] MEDS ORDERED: LABETALOL 5MG/ML, 20ML IV PRN (12:30)
[2019-10-05] MEDS ORDERED: HYDROmorphone 1 MG/ML, 1ML INJ IV PRN (12:30)
[2019-10-05] MEDS ORDERED: FENTANYL PF 100 MCG/2ML IV PRN (12:30)
[2019-10-05] MEDS ORDERED: ONDANSETRON 2MG/ML, 2ML IVPush PRN (12:30)
[2019-10-05] MEDS ORDERED: hydrALAzine 20 MG/ML, 1ML IV PRN (12:30)
[2019-10-05] MEDS ORDERED: ALBUTEROL SULFATE 2.5 MG/3 ML NPPB PRN (12:30)
[2019-10-05] MEDS ORDERED: MEPERIDINE/PF 25MG/0.5ML IVPush PRN (12:30)
[2019-10-05] MEDS ORDERED: KETOROLAC 30 MG/1 ML IV PRN (12:30)
[2019-10-05] MEDS ORDERED: PROMETHAZINE 25 MG/ML, 1ML IV PRN (12:30)
[2019-10-05] MEDS ORDERED: METOCLOPRAMIDE 5 MG/ML, 2ML IV PRN (12:30)
[2019-10-05] MEDS ORDERED: OXYcodone 5 MG/5 ML ORAL.SOL UDC PO PRN (12:30)
[2019-10-05] MEDS ORDERED: OXYcodone 5 MG/5 ML ORAL.SOL UDC ONE (13:38)
[2019-10-05] MEDS ORDERED: PROMETHAZINE 25MG TABLET PO ONE (16:00)
[2019-10-05] MEDS ORDERED: KETOROLAC 10MG TABLET PO ONE (16:00)
== END 2019-10-05 16:20 | disposition home or self-care (01) ==
LOC: OR 09:44
PROVIDERS: ATTEND Surgery
DX: T81.41XA Infection following a procedure, superficial incisional surgical site, initial encounter (principal); L02.211 Cutaneous abscess of abdominal wall; C18.7 Malignant neoplasm of sigmoid colon; C78.7 Secondary malignant neoplasm of liver and intrahepatic bile duct; I10 Essential (primary) hypertension; Z72.89 Other problems related to lifestyle; Z79.01 Long term (current) use of anticoagulants; Z79.899 Other long term (current) drug therapy; Z90.49 Acquired absence of other specified parts of digestive tract; Z98.890 Other specified postprocedural states; Y83.8 Other surgical procedures as the cause of abnormal reaction of the patient, or of later complication, without mention of misadventure at the time of the procedure
CPT/HCPCS: 11043; 11046; 36415; 85610; 85730; 87070; 87075; 87077; 87147; 87176; 87186; 87205; J0171; J0330; J0690; J1100; J2250; J2405; J2704; J3010; J7120; Q0169

== ENCOUNTER 2019-10-10 13:51 | Outpatient (CLI) | payer MEDICARE | END 2019-10-10 23:59 | disposition home or self-care (01) | LOC: WOUND 13:51 | PROVIDERS: ATTEND Internal Medicine | DX: T81.31XD Disruption of external operation (surgical) wound, not elsewhere classified, subsequent encounter (principal); L76.34 Postprocedural seroma of skin and subcutaneous tissue following other procedure; C18.7 Malignant neoplasm of sigmoid colon; C78.7 Secondary malignant neoplasm of liver and intrahepatic bile duct; I10 Essential (primary) hypertension; B19.10 Unspecified viral hepatitis B without hepatic coma; Y83.8 Other surgical procedures as the cause of abnormal reaction of the patient, or of later complication, without mention of misadventure at the time of the procedure | CPT/HCPCS: 97602; G0463; 99213 ==

== ENCOUNTER → 2019-10-11 | Outpatient (CLI) | payer MEDICARE | END | disposition home or self-care (01) | LOC: WOUND 11:41 | PROVIDERS: ATTEND Internal Medicine Cardiovascular Disease | DX: T81.31XD Disruption of external operation (surgical) wound, not elsewhere classified, subsequent encounter (principal); L76.34 Postprocedural seroma of skin and subcutaneous tissue following other procedure; C18.7 Malignant neoplasm of sigmoid colon; C78.7 Secondary malignant neoplasm of liver and intrahepatic bile duct; B19.10 Unspecified viral hepatitis B without hepatic coma; I10 Essential (primary) hypertension; Z79.01 Long term (current) use of anticoagulants; Y83.8 Other surgical procedures as the cause of abnormal reaction of the patient, or of later complication, without mention of misadventure at the time of the procedure | CPT/HCPCS: 97602 ==

== ENCOUNTER → 2019-10-11 | Outpatient (CLI) | payer MEDICARE ==
[~2019-10-11] MED LIST changes: +OMNIPAQUE 350 MG/ML, 100ML BOTTLE ONE
[2019-10-11 14:48] LABS: CREATININE 0.88 mg/dL (0.55-1.02)
== END | disposition home or self-care (01) ==
LOC: RAD 13:55
PROVIDERS: ATTEND Surgery
DX: C78.7 Secondary malignant neoplasm of liver and intrahepatic bile duct (principal); T81.40XA Infection following a procedure, unspecified, initial encounter; C18.9 Malignant neoplasm of colon, unspecified; B99.8 Other infectious disease
CPT/HCPCS: 36415; 74170; 82565; Q9967

== ENCOUNTER → 2019-10-12 | Outpatient (CLI) | payer MEDICARE ==
[~2019-10-12] MED LIST changes: -OMNIPAQUE 350 MG/ML, 100ML BOTTLE ONE
== END | disposition home or self-care (01) ==
LOC: WOUND 11:30
PROVIDERS: ATTEND Family Medicine
DX: T81.31XD Disruption of external operation (surgical) wound, not elsewhere classified, subsequent encounter (principal); L76.34 Postprocedural seroma of skin and subcutaneous tissue following other procedure; C18.7 Malignant neoplasm of sigmoid colon; C78.7 Secondary malignant neoplasm of liver and intrahepatic bile duct; B19.10 Unspecified viral hepatitis B without hepatic coma; I10 Essential (primary) hypertension; Z79.01 Long term (current) use of anticoagulants; Y83.8 Other surgical procedures as the cause of abnormal reaction of the patient, or of later complication, without mention of misadventure at the time of the procedure
CPT/HCPCS: 97602; J1642

== ENCOUNTER 2019-10-15 13:15 | Outpatient (CLI) | payer MEDICARE | END 2019-10-15 23:59 | disposition home or self-care (01) | LOC: WOUND 13:15 | PROVIDERS: ATTEND Internal Medicine | DX: T81.31XD Disruption of external operation (surgical) wound, not elsewhere classified, subsequent encounter (principal); L76.34 Postprocedural seroma of skin and subcutaneous tissue following other procedure; C18.7 Malignant neoplasm of sigmoid colon; C78.7 Secondary malignant neoplasm of liver and intrahepatic bile duct; B19.10 Unspecified viral hepatitis B without hepatic coma; I10 Essential (primary) hypertension; Z79.01 Long term (current) use of anticoagulants; Y83.8 Other surgical procedures as the cause of abnormal reaction of the patient, or of later complication, without mention of misadventure at the time of the procedure | CPT/HCPCS: 11042; 11045; 87070; 87077; 87147; 87176; 87186; 87205 ==

== ENCOUNTER → 2019-10-19 | Outpatient (CLI) | payer MEDICARE | END | disposition home or self-care (01) | LOC: WOUND 14:43 | PROVIDERS: ATTEND Family Medicine | DX: T81.31XD Disruption of external operation (surgical) wound, not elsewhere classified, subsequent encounter (principal); L76.34 Postprocedural seroma of skin and subcutaneous tissue following other procedure; C18.7 Malignant neoplasm of sigmoid colon; C78.7 Secondary malignant neoplasm of liver and intrahepatic bile duct; B19.10 Unspecified viral hepatitis B without hepatic coma; I10 Essential (primary) hypertension; Z79.01 Long term (current) use of anticoagulants; Y83.8 Other surgical procedures as the cause of abnormal reaction of the patient, or of later complication, without mention of misadventure at the time of the procedure | CPT/HCPCS: 97605 ==

== ENCOUNTER → 2019-10-22 | Outpatient (CLI) | payer MEDICARE | END | disposition home or self-care (01) | LOC: WOUND 13:10 | PROVIDERS: ATTEND Internal Medicine | DX: T81.31XD Disruption of external operation (surgical) wound, not elsewhere classified, subsequent encounter (principal); L76.34 Postprocedural seroma of skin and subcutaneous tissue following other procedure; C18.7 Malignant neoplasm of sigmoid colon; C78.7 Secondary malignant neoplasm of liver and intrahepatic bile duct; B19.10 Unspecified viral hepatitis B without hepatic coma; I10 Essential (primary) hypertension; Z79.01 Long term (current) use of anticoagulants; Y83.8 Other surgical procedures as the cause of abnormal reaction of the patient, or of later complication, without mention of misadventure at the time of the procedure | CPT/HCPCS: 11042; 11045; 97605 ==

== ENCOUNTER 2019-10-24 10:20 | Outpatient (CLI) ==
[2019-12-02] MEDS ORDERED: LISI5TAB7 PO (09:11)
[2019-12-02] MEDS ORDERED: SENN-177 PO (09:11)
[2019-12-02] MEDS ORDERED: POLY17PO5 PO (09:11)
[2019-12-02] MEDS ORDERED: LEVO750T26 PO (09:11)
== END 2019-10-24 23:59 | disposition home or self-care (01) ==
LOC: WOUND 10:20
PROVIDERS: ATTEND Internal Medicine
DX: T81.31XD Disruption of external operation (surgical) wound, not elsewhere classified, subsequent encounter (principal); L76.34 Postprocedural seroma of skin and subcutaneous tissue following other procedure; C18.7 Malignant neoplasm of sigmoid colon; C78.7 Secondary malignant neoplasm of liver and intrahepatic bile duct; B19.10 Unspecified viral hepatitis B without hepatic coma; I10 Essential (primary) hypertension; Z79.01 Long term (current) use of anticoagulants; Y83.8 Other surgical procedures as the cause of abnormal reaction of the patient, or of later complication, without mention of misadventure at the time of the procedure
CPT/HCPCS: G0463

== ENCOUNTER 2019-10-29 13:05 | Outpatient (CLI) | payer MEDICARE | END 2019-10-29 23:59 | disposition home or self-care (01) | LOC: WOUND 13:05 | PROVIDERS: ATTEND Internal Medicine | DX: T81.31XD Disruption of external operation (surgical) wound, not elsewhere classified, subsequent encounter (principal); L76.34 Postprocedural seroma of skin and subcutaneous tissue following other procedure; C18.7 Malignant neoplasm of sigmoid colon; C78.7 Secondary malignant neoplasm of liver and intrahepatic bile duct; B19.10 Unspecified viral hepatitis B without hepatic coma; I10 Essential (primary) hypertension; Z79.01 Long term (current) use of anticoagulants; Y83.8 Other surgical procedures as the cause of abnormal reaction of the patient, or of later complication, without mention of misadventure at the time of the procedure; Z79.899 Other long term (current) drug therapy | CPT/HCPCS: 11042; 97605 ==

== ENCOUNTER 2019-10-31 13:00 | Outpatient (CLI) | payer MEDICARE ==
[2019-12-02] MEDS ORDERED: POLY17PO5 PO (09:11)
[2019-12-02] MEDS ORDERED: LISI5TAB7 PO (09:11)
[2019-12-02] MEDS ORDERED: LEVO750T26 PO (09:11)
[2019-12-02] MEDS ORDERED: SENN-177 PO (09:11)
== END 2019-10-31 23:59 | disposition home or self-care (01) ==
LOC: WOUND 13:00
PROVIDERS: ATTEND Internal Medicine
DX: T81.31XD Disruption of external operation (surgical) wound, not elsewhere classified, subsequent encounter (principal); L76.34 Postprocedural seroma of skin and subcutaneous tissue following other procedure; C18.7 Malignant neoplasm of sigmoid colon; C78.7 Secondary malignant neoplasm of liver and intrahepatic bile duct; B19.10 Unspecified viral hepatitis B without hepatic coma; I10 Essential (primary) hypertension; Z79.01 Long term (current) use of anticoagulants; Z79.899 Other long term (current) drug therapy; Y83.8 Other surgical procedures as the cause of abnormal reaction of the patient, or of later complication, without mention of misadventure at the time of the procedure
CPT/HCPCS: G0463

== ENCOUNTER → 2019-11-02 | Outpatient (CLI) | payer MEDICARE | END | disposition home or self-care (01) | LOC: WOUND 13:15 | PROVIDERS: ATTEND Family Medicine | DX: T81.31XD Disruption of external operation (surgical) wound, not elsewhere classified, subsequent encounter (principal); L76.34 Postprocedural seroma of skin and subcutaneous tissue following other procedure; C18.7 Malignant neoplasm of sigmoid colon; C78.7 Secondary malignant neoplasm of liver and intrahepatic bile duct; B19.10 Unspecified viral hepatitis B without hepatic coma; I10 Essential (primary) hypertension; Z79.01 Long term (current) use of anticoagulants; Z79.899 Other long term (current) drug therapy; Z90.49 Acquired absence of other specified parts of digestive tract; Y83.8 Other surgical procedures as the cause of abnormal reaction of the patient, or of later complication, without mention of misadventure at the time of the procedure | CPT/HCPCS: G0463 ==

== ENCOUNTER → 2019-11-05 | Outpatient (CLI) | payer MEDICARE | END | disposition home or self-care (01) | LOC: WOUND 13:12 | PROVIDERS: ATTEND Internal Medicine | DX: T81.31XD Disruption of external operation (surgical) wound, not elsewhere classified, subsequent encounter (principal); L76.34 Postprocedural seroma of skin and subcutaneous tissue following other procedure; C18.7 Malignant neoplasm of sigmoid colon; C78.7 Secondary malignant neoplasm of liver and intrahepatic bile duct; B19.10 Unspecified viral hepatitis B without hepatic coma; I10 Essential (primary) hypertension; Z79.01 Long term (current) use of anticoagulants; Z79.899 Other long term (current) drug therapy; Z90.49 Acquired absence of other specified parts of digestive tract; Y83.8 Other surgical procedures as the cause of abnormal reaction of the patient, or of later complication, without mention of misadventure at the time of the procedure | CPT/HCPCS: 97597 ==

== ENCOUNTER → 2019-11-06 | Outpatient (CLI) | payer MEDICARE ==
[~2019-11-06] MED LIST changes: +OMNIPAQUE 350 MG/ML, 100ML BOTTLE ONE
== END | disposition home or self-care (01) ==
LOC: CFH 11:31
PROVIDERS: ATTEND Surgery
DX: C78.7 Secondary malignant neoplasm of liver and intrahepatic bile duct (principal); C18.7 Malignant neoplasm of sigmoid colon; K76.89 Other specified diseases of liver; N28.1 Cyst of kidney, acquired; M47.819 Spondylosis without myelopathy or radiculopathy, site unspecified; Z90.49 Acquired absence of other specified parts of digestive tract; Z79.899 Other long term (current) drug therapy
CPT/HCPCS: 74177; 82565; Q9967

== ENCOUNTER → 2019-11-12 | Outpatient (CLI) | payer MEDICARE ==
[~2019-11-12] MED LIST changes: -OMNIPAQUE 350 MG/ML, 100ML BOTTLE ONE
== END | disposition home or self-care (01) ==
LOC: WOUND 13:04
PROVIDERS: ATTEND Internal Medicine
DX: T81.31XD Disruption of external operation (surgical) wound, not elsewhere classified, subsequent encounter (principal); L76.34 Postprocedural seroma of skin and subcutaneous tissue following other procedure; C18.7 Malignant neoplasm of sigmoid colon; C78.7 Secondary malignant neoplasm of liver and intrahepatic bile duct; B19.10 Unspecified viral hepatitis B without hepatic coma; I10 Essential (primary) hypertension; Z79.01 Long term (current) use of anticoagulants; Z79.899 Other long term (current) drug therapy; Z90.49 Acquired absence of other specified parts of digestive tract; Y83.8 Other surgical procedures as the cause of abnormal reaction of the patient, or of later complication, without mention of misadventure at the time of the procedure
CPT/HCPCS: 11042

== ENCOUNTER 2019-11-22 08:08 | Day surgery (SDC) | payer MEDICARE ==
[~2019-11-22] VITALS: Ht 157.5 cm; Wt 59.4 kg
[2019-11-22 08:23] VITALS: BP 163/99
[2019-11-22] MEDS ORDERED: SODIUM CHLORIDE 0.9% 1,000 ML IV SCH (08:30)
[2019-11-22] MEDS ORDERED: LIDOCAINE 1%, 10ML ONE (09:40)
[2019-12-02] MEDS ORDERED: SENN-177 PO (09:11)
[2019-12-02] MEDS ORDERED: LEVO750T26 PO (09:11)
[2019-12-02] MEDS ORDERED: POLY17PO5 PO (09:11)
[2019-12-02] MEDS ORDERED: LISI5TAB7 PO (09:11)
== END 2019-11-22 11:35 | disposition home or self-care (01) ==
LOC: OUT 08:08 → EDSTATUS 09:30 → OUT 11:35
PROVIDERS: ATTEND Surgery
DX: T81.41XA Infection following a procedure, superficial incisional surgical site, initial encounter (principal); C78.7 Secondary malignant neoplasm of liver and intrahepatic bile duct; C18.7 Malignant neoplasm of sigmoid colon; I10 Essential (primary) hypertension; F32.9 Major depressive disorder, single episode, unspecified; Z79.899 Other long term (current) drug therapy; Z90.49 Acquired absence of other specified parts of digestive tract; Z98.890 Other specified postprocedural states; Y83.8 Other surgical procedures as the cause of abnormal reaction of the patient, or of later complication, without mention of misadventure at the time of the procedure
CPT/HCPCS: 49405; 87070; 87075; 87077; 87186; 87205; 99156; 99157; C1729; C1769; 75989

== ENCOUNTER → 2019-11-27 | Outpatient (CLI) | payer MEDICARE, MEDICAID ==
[~2019-11-27] MED LIST changes: +LEVO750T26 PO; +LISI5TAB7 PO; +POLY17PO5 PO; +SENN-177 PO
== END | disposition home or self-care (01) ==
LOC: CFH 13:31 → EDSTATUS 13:45
PROVIDERS: ATTEND Licensed Practical Nurse
DX: Z12.31 Encounter for screening mammogram for malignant neoplasm of breast (principal)
CPT/HCPCS: 77067

== ENCOUNTER 2020-03-10 12:38 | Outpatient (CLI) | payer MEDICARE, MEDICAID ==
[2020-03-10] MEDS ORDERED: OMNIPAQUE 350 MG/ML, 100ML BOTTLE ONE (13:00)
== END 2020-03-10 23:59 | disposition home or self-care (01) ==
LOC: RAD 12:38
PROVIDERS: ATTEND Surgery
DX: C78.7 Secondary malignant neoplasm of liver and intrahepatic bile duct (principal); C18.7 Malignant neoplasm of sigmoid colon; N28.1 Cyst of kidney, acquired; M85.88 Other specified disorders of bone density and structure, other site; R91.1 Solitary pulmonary nodule; Z90.49 Acquired absence of other specified parts of digestive tract
CPT/HCPCS: 71260; 74177; Q9967

== ENCOUNTER → 2020-07-01 | Outpatient (CLI) | payer MEDICARE, MEDICAID ==
[~2020-07-01] MED LIST changes: +OMNIPAQUE 350 MG/ML, 100ML BOTTLE ONE
== END | disposition home or self-care (01) ==
LOC: CFH 09:36
PROVIDERS: ATTEND Internal Medicine Hematology & Oncology
DX: C18.7 Malignant neoplasm of sigmoid colon (principal); J84.10 Pulmonary fibrosis, unspecified; R91.1 Solitary pulmonary nodule; M47.9 Spondylosis, unspecified
CPT/HCPCS: 71260; 74177; Q9967

== ENCOUNTER → 2020-11-05 | Outpatient (CLI) | payer MEDICARE, MEDICAID ==
[~2020-11-05] MED LIST changes: -ALEN70TA6 PO; +ALEN70TA66 PO
== END | disposition home or self-care (01) ==
LOC: CFH 12:48
PROVIDERS: ATTEND Internal Medicine Hematology & Oncology
DX: C18.7 Malignant neoplasm of sigmoid colon (principal); R91.1 Solitary pulmonary nodule; Z90.49 Acquired absence of other specified parts of digestive tract
CPT/HCPCS: 71260; 74177; Q9967

== ENCOUNTER 2020-12-19 12:34 | Outpatient (CLI) | payer MEDICARE, MEDICAID ==
[~2020-12-19 12:34] MED LIST changes: -ALEN70TA66 PO; +ALEN70TA77 PO; -ESCI10TA PO; +ESCI10TA5 PO; +HYDR-1067 PO; -HYDR-3240 PO; -OMNIPAQUE 350 MG/ML, 100ML BOTTLE ONE; -OXYC-302 PO; +OXYC1TAB14 PO
== END 2020-12-19 23:59 | disposition home or self-care (01) ==
LOC: CFH 12:34
PROVIDERS: ATTEND Nurse Practitioner
DX: Z12.31 Encounter for screening mammogram for malignant neoplasm of breast (principal)
CPT/HCPCS: 77063; 77067

== ENCOUNTER 2021-01-09 14:15 | Outpatient (CLI) | payer MEDICARE, MEDICAID ==
[~2021-01-09 14:15] MED LIST changes: -ESCI10TA5 PO; +ESCI10TA97 PO
[2021-01-09 16:22] LABS: MICROSCOPIC AUTO
== END 2021-01-09 23:59 | disposition home or self-care (01) ==
LOC: RAD 14:15
PROVIDERS: ATTEND Nurse Practitioner
DX: S22.42XA Multiple fractures of ribs, left side, initial encounter for closed fracture (principal); M43.8X4 Other specified deforming dorsopathies, thoracic region; J84.10 Pulmonary fibrosis, unspecified; J90 Pleural effusion, not elsewhere classified; X58.XXXA Exposure to other specified factors, initial encounter; Y93.9 Activity, unspecified; Y92.89 Other specified places as the place of occurrence of the external cause; Y99.8 Other external cause status
CPT/HCPCS: 71046; 81001

== ENCOUNTER → 2021-04-30 | Outpatient (CLI) | payer MEDICARE, MEDICAID ==
[~2021-04-30] MED LIST changes: -HYDR-1067 PO; +HYDR-2214 PO; +OMNIPAQUE 350 MG/ML, 100ML BOTTLE ONE
== END | disposition home or self-care (01) ==
LOC: CFH 14:12
PROVIDERS: ATTEND Internal Medicine Hematology & Oncology
DX: C18.7 Malignant neoplasm of sigmoid colon (principal); R91.1 Solitary pulmonary nodule; J84.10 Pulmonary fibrosis, unspecified
CPT/HCPCS: 71260; 74177; Q9967

== ENCOUNTER 2021-07-24 13:23 | Emergency (ER) | payer MEDICARE, MEDICAID ==
[~2021-07-24] VITALS: Ht 156.2 cm; Wt 57.0 kg
[~2021-07-24 13:23] MED LIST changes: -OMNIPAQUE 350 MG/ML, 100ML BOTTLE ONE; +OXYC1TAB12 PO; -OXYC1TAB14 PO
--- NOTE | 2021-07-24 15:02 | NUR ---
EXPLORATION DRILLER: PT TO IR
--- NOTE | 2021-07-24 15:37 | NUR ---
WEATHER STRIP MECHANIC: PT BACK FROM IR, TO ROOM
--- NOTE | 2021-07-24 15:47 | NUR ---
CONTACT WITH PT. 75 YR OLD FEMALE HERE. "I WENT TO GET MY 6 WEEK FLUSH, WHEN SHE WAS PUTTING THE SALINE IN THE PAIN WAS EXCRUCIATING PINCHING PAIN. SAME EXPERIENCE WITH SECOND FLUSH. A PORT STUDY WAS TO BE SET UP. I WAS TOLD TO COME INTO THE ER. SO I HAVE ALREADY HAD EVERYTHING DONE. I HAVE ALREADY SPOKEN TO DR FOLEY AND HE THINKS I SHOULD HAVE IT REMOVED"
--- NOTE | 2021-07-24 16:07 | NUR ---
DR WALDEN AT BEDSIDE TO [facility] PT
--- NOTE | 2021-07-24 16:16 | NUR ---
DR WALDEN AWARE OF PT BP, NO KNEW ORDERS. PT TO MONITOR AT HOME.
[2021-07-24 16:18] VITALS: BP 182/102
--- NOTE | 2021-07-24 16:34 | NUR ---
NO IV TO DC. REVIEWED DC INSTRUCTIONS WITH PT. UNDERSTANDING VERBALIZED. PT LEFT AMB, GAIT STEADY.
== END 2021-07-24 17:44 | disposition home or self-care (01) ==
LOC: ED 16:51
DX: R07.89 Other chest pain (principal); I10 Essential (primary) hypertension; Z86.711 Personal history of pulmonary embolism
CPT/HCPCS: 76000; 99283

== ENCOUNTER 2021-08-21 08:29 | Day surgery (SDC) | payer MEDICARE, MEDICAID ==
[~2021-08-21] VITALS: Ht 154.9 cm; Wt 59.0 kg
[2021-08-21 09:05] VITALS: BP 162/102
[2021-08-21] MEDS ORDERED: LISI40TA9 PO (09:07)
[2021-08-21] MEDS ORDERED: SODIUM CHLORIDE 0.9% 1,000 ML IV SCH (09:30)
[2021-08-21] MEDS ORDERED: LIDOCAINE 1%, 20ML ONE (09:54)
[2021-08-21] MEDS ORDERED: FLUMAZENIL 0.1 MG/1 ML, 5ML ONE (10:00)
[2021-08-21] MEDS ORDERED: MIDAZOLAM 1 MG/ML, 5ML ONE (10:00)
[2021-08-21] MEDS ORDERED: NALOXONE 1 MG/ML, 2ML ONE (10:00)
[2021-08-21] MEDS ORDERED: FENTANYL PF 100 MCG/2ML ONE (10:00)
== END 2021-08-21 11:40 | disposition home or self-care (01) ==
LOC: OUT 08:29
PROVIDERS: ATTEND Internal Medicine Hematology & Oncology
DX: Z45.2 Encounter for adjustment and management of vascular access device (principal); C18.7 Malignant neoplasm of sigmoid colon; I10 Essential (primary) hypertension; Z79.899 Other long term (current) drug therapy
CPT/HCPCS: 36590; 99156; 99157; J2250; J3010; 77001; J2310